=== PATIENT | male | born 1950 | race Caucasian/White ===

== ENCOUNTER 2016-05-13 18:46 | Emergency (ER) | payer BC ==
[~2016-05-13] VITALS: Ht 175.3 cm; Wt 156.8 kg
[~2016-05-13 18:46] MED LIST: ASPIRIN325 MG PO; CYANOCOBALAM1000 MCG PO; DAILY VALUE1 EACH PO; DAILY VITAMIN1 EAC8 PO; DIOVAN160 MG PO; Diovan PO; ERGOCALCIF50000 UNIT PO; FISH OIL 1,0001 EAC7 PO; FUROSEMIDE40 MG PO; GABAPENTIN300 MG PO; INSULIN SC; IRON325 M1 PO; KLOR-CON 1010 ME1 PO; LASIX40 MG PO; LITE COAT ASPI325 M1 PO; LOPRESSOR25 MG PO; Lasix PO; Lopressor PO; MECLIZINE HCL25 MG PO; METFORMIN HCL1000 M1 PO; METFORMIN HCL1000 MG PO; METFORMIN HCL500 M1 PO; METOPROLOL TART25 MG PO; METOPROLOL TART50 MG PO; MOXIFLOXACIN H400 MG PO; NEURONTIN300 MG PO; NITROSTAT0.4 MG SL; NOVOLIN N100 UNITS/ SC; NOVOLOG 10100 UNITS/ SC; Neurontin PO; Nitrostat,NitroQuick SL; POTASSIUM CHLOR8 ME2 PO; PROVENTIL HFA6.7 GM IH; RANITIDINE HCL150 MG PO; VALSARTAN320 MG PO; VITAMIN D1000 UNIT PO; VYTORIN 10/41 TABLET PO; VYTORIN 10/81 TABLET PO; [UNRECOGNIZED DRUG - OTHER] SC
[2016-05-13 19:01] VITALS: BP 159/63
[2016-05-13] MEDS ORDERED: LANTUS 10100 UNITS/ SC (20:28)
[2016-05-13] MEDS ORDERED: VALIUM5 MG PO (22:49)
== END 2016-05-13 23:23 | disposition home or self-care (01) ==
LOC: EME 18:46
DX: M54.12 Radiculopathy, cervical region (principal); M50.90 Cervical disc disorder, unspecified, unspecified cervical region; M54.16 Radiculopathy, lumbar region; M54.32 Sciatica, left side; G89.29 Other chronic pain; E11.9 Type 2 diabetes mellitus without complications; I10 Essential (primary) hypertension; I25.2 Old myocardial infarction; Z95.1 Presence of aortocoronary bypass graft; Z88.6 Allergy status to analgesic agent; Z88.0 Allergy status to penicillin
CPT/HCPCS: 72125; 72131; 93005; 99281; 99284